=== PATIENT | female | born 1975 | race Caucasian/White ===

== ENCOUNTER 2025-01-27 08:02 | Emergency (ER) | payer SELFPAY ==
[2025-01-27 08:10] VITALS: BP 181/81; PULSE 81; RESP 18; TEMP 36.7; O2SAT 97; BMI 35.6
[2025-01-27 08:26] VITALS: BP 163/89; PULSE 82; RESP 19; TEMP 36.8; O2SAT 99
--- NOTE | 2025-01-27 08:26 | ED_ITS ---
HPI - General Adult General Chief complaint: Extremity Injury, Lower Stated complaint: L foot soreness no injury Time Seen by Provider: 01/27/25 08:24 Source: patient and RN notes reviewed Mode of arrival: ambulatory Limitations: no limitations History of Present Illness ED Provider: Keyona So PA-C HPI narrative: 49-year-old female without significant medical history presents to the ED due to 3 weeks of cracking and itching of the left foot. Patient reports approximately 3 weeks ago while in the shower she noticed the bottom of her left foot was intensely itchy, with some scaling and peeling skin. Patient reports over the last 3 weeks left foot has been worsening with itching, skin now cracking. Patient has been using [id number] athlete's foot cream and ointment daily, an antibacterial cream without effect. Patient states she does wear closed toed shoes daily. Patient denies anyone else at home with these symptoms. Denies chest pain, shortness of breath, abdominal pain, nausea, vomiting, diarrhea, dark/tarry stool, urinary symptoms Related Data Previous Rx's ?Medication ?Instructions ?Recorded fluconazole 150 mg tablet 150 mg PO DAILY #1 tab 01/27 mupirocin 2 % topical ointment 1 appl topical BID #15 grams 01/27/25 (Centany) Allergies Allergy/AdvReac Type Severity Reaction Status Date / Time amoxicillin (From Augmentin) Allergy Intermediate Rash Verified 01/27/25 08:12 clavulanic acid (From Allergy Intermediate Rash Verified 01/27/25 08:12 Augmentin) Penicillins Allergy Intermediate Rash Verified 01/27/25 08:12 Sulfa (Sulfonamide Allergy Intermediate Unknown Verified 01/27/25 08:12 Antibiotics) Review of Systems 2 Review of Systems: CONST: Negative for fever, body aches and chills. HENT: Negative for neck pain/stiffness, headache, congestion, sore throat, swelling. EYES: Negative for discharge/pain or vision changes. RESP: Negative for cough/hemoptysis and shortness of breath. CV: Negative chest pain, difficulty breathing, palpitations. ABD: Negative pain, nausea, vomiting. : Negative increase frequency, dysuria, blood in urine or stool. MUSC: Negative for muscle aches, edema. SKIN: Negative rash, lesions/sores. POS L foot itching, scaling, cracking NEURO: Negative headache, dizziness, weakness. Yes all other systems are reviewed and are negative [facility] Past Medical History Attestation statement: The following information was validated with the patient. Source: old records reviewed and nursing notes reviewed Social History Social History Smoked in Last 30 Days: No Use of substances other than those prescribed or required for medical reasons: No Advance Directives: Yes Advance Directives Information Provided: Yes Advance Directives on File: No Do you have a plan to hurt others: No Plan Patient : No Physical Exam ED Vital Signs: Vital Signs - 24 hr 01/27/25 08:10 01/27/25 08:26 Temperature 98.1 F 98.2 F Pulse Rate 81 82 Respiratory Rate 18 19 Blood Pressure 181/81 H 163/89 H Pulse Oximetry 97 99 Oxygen Delivery Method Room Air Room Air BMI result Body Mass Index 35.6 GENERAL APPEARANCE: ?AxOx4, generally well-appearing, no acute distress. HEENT: ?NC, AT. MMM. EOMI, clear conjunctiva, oropharynx clear. NECK: ?Supple without lymphadenopathy.? No stiffness or restricted ROM. HEART:? Normal rate and regular rhythm, normal S1/S2, no m/r/g LUNGS:? CTAB, moving air well. No crackles or wheezes are heard. EXTREMITIES: ?Without cyanosis, clubbing or edema. NEUROLOGICAL: ?Grossly nonfocal. Alert and oriented, moving all 4 extremities. Observed to ambulate with normal gait. Skin: ?Warm and dry without any rash. SEE PHOTS OF L FOOT, no active bleeding, purulent drainage. Medications Administered Discontinued Medications Generic Name Dose Route Start Last Admin Trade Name Joaquínq PRN Reason Stop Dose Admin Fluconazole 150 mg 01/27/25 08:41 01/27/25 08:52 Fluconazole 150 Mg Tablet PO 01/27/25 08:42 150 mg ONCE ONE Administration Medical Decision Making Medical Decision Making MDM Narrative: 49-year-old female without significant medical history presents to the ED due to 3 weeks of cracking and itching of the left foot. Patient reports approximately 3 weeks ago while in the shower she noticed the bottom of her left foot was intensely itchy, with some scaling and peeling skin. Patient reports over the last 3 weeks left foot has been worsening with itching, skin now cracking. Patient has been using [id number] athlete's foot cream and ointment daily, an antibacterial cream without effect. Patient states she does wear closed toed shoes daily. Patient denies anyone else at home with these symptoms. VSS, in no acute distress, patient nontoxic appearing. Left foot with scaling, without active drainage, no erythema, no fluctuance- less likely abscess, cellulitis. Patient has been trialing OTC athlete's foot medication. Will discharge patient with mupirocin cream to be applied b.i.d., with 1 dose of fluconazole to treat for suspected athlete's foot. Patient has PCP follow up, encouraged patient to call and follow up with her primary care provider to ensure improvement with treatment. We will medicate patient with 150 mg fluconazole while in the department. Differential Diagnosis Differential Diagnoses: The differential diagnosis associated with the presentation includes Abscess Cellulitis Tinea pedis Admission/Observation Consideration of admission/observation: Escalation of care including admission/observation considered External Record Review External record reviewed: Inpatient record, Office record and Outpatient record Discharge Plan Discharge Clinical Impression: Tinea pedis Patient Disposition: Home, Self-Care Instructions: Skin Yeast Infection (ED) Additional Instructions: You were evaluated in the ED today due to itching, cracking of your left foot. On physical exam bottom of the left foot was cracking, without active bleeding or drainage. At this time I believe you have athlete's foot, which is a fungal infection of your foot. You will be prescribed mupirocin which is an antibacterial cream that you will apply twice daily. You were given 1 dose of 150 mg fluconazole which is an antifungal medication while in the department. You are being prescribed an additional dose of fluconazole, you will take this next Sunday on 02/03. To manage this at home, I suggest you change socks twice daily, you may want to get new socks as it is hard to kill fungal spores in the washer. I encourage you to follow up with your primary care physician to ensure improvement, as you may need additional doses of the antifungal medication to clear this up. Please return to the emergency department if you experience fevers over 100.4?, shortness of breath, chest pain, worsening pain of your left foot, difficulty walking, bleeding or oozing drainage from the left foot, redness around the left foot, pain or swelling of your left foot or calf, or any other new/worsening/concerning symptoms Prescriptions: New mupirocin [Centany] 2 % ointment 1 appl topical BID Qty: 15 0RF fluconazole 150 mg tablet 150 mg PO DAILY Qty: 1 0RF Print Language: Amharic
--- NOTE | 2025-01-27 08:29 | PC.NURSE ---
Patient present to ED c/o bottom left foot pain Patient reports foot has been dry and cracky for about 3 weeks and has worsened over time Pain rated 6/10 non radiating, +CMS +ROM. rough rice tender and unable to bear weight on area. Patient has tried soaking feet, lotromin, and triple antibiotic with no effect. Patient hypertensive at 163/89 but otherwise all VSS Provider in to see patient Plan of care on going
--- OUTSIDE RECORDS SUMMARY | 2025-01-27 08:40 | XMS_ITS ---
Author Name [facility] Organization Unknown Care Team Organization Name Specialty Phone Email Start Date End [facility] te [facility] Sot[facility] 06/26/2022 02/04/2024
[2025-01-27 09:50] VITALS: BP 163/89; PULSE 82; RESP 19; TEMP 36.8; O2SAT 99
== END 2025-01-27 09:51 | disposition home or self-care (01) ==
PROVIDERS: Emergency Provider Emergency Medicine
DX: B35.3 Tinea pedis (principal); M79.672 Pain in left foot
CPT/HCPCS: 99283; 99284